=== PATIENT | female | born 1950 | race Caucasian/White ===

== ENCOUNTER 2022-07-01 14:35 | Outpatient (CLI) | payer OTHER, MEDICARE, SELFPAY ==
--- NOTE | 2022-07-01 14:40 | CRLHL7_ITS ---
For Patients: As a result of the Century Cures Act, medical imaging exams and procedure reports are released immediately into your electronic medical record. You may view this report before your referring provider. If you have questions, please contact your health care provider. BILATERAL SCREENING MAMMOGRAM WITH COMPUTER-AIDED DETECTION AND TOMOSYNTHESIS TECHNIQUE: CC and MLO views were obtained. These mammographic images have been obtained using full-field digital technique. These mammographic images were interpreted with the benefit of computer-aided detection. Breast Tomosynthesis was used in this interpretation. COMPARISON FILM: 06/30/21, 06/15/20, 06/12/19. FINDINGS: The breasts are heterogeneously dense, which may obscure small masses IMPRESSION: There is no radiographic evidence for malignancy. ASSESSMENT: BI-RADS Category 1: Negative RECOMMENDATION: Routine screening mammogram in 1 year. A lay language report of this examination will be provided to the patient. Kaiden Martinez M.D. Diagnostic Radiologist [email or web address] TOMAS/Dictated by: Kaiden Martinez MD @ 07/04/2022 11:50:00 AM (Electronically Signed)
== END 2022-07-01 14:36 | disposition home or self-care (01) ==
LOC: MAMMO 14:42
PROVIDERS: PCP Family Medicine; Visit Provider Family Medicine
DX: Z12.31 Encounter for screening mammogram for malignant neoplasm of breast (principal); R92.2 Inconclusive mammogram
CPT/HCPCS: 77063; 77067

== ENCOUNTER 2023-07-03 13:24 | Outpatient (CLI) | payer OTHER, SELFPAY ==
--- NOTE | 2023-07-03 13:40 | MM_ITS ---
Final Report Patient: CARLINE DONOHUE Facility:?[facility] Patient ID:?[id number] Study:?XRay Breast Left 3D W/CAD-07/03/2023 2:11:02 PM Ordering Physician:Heriberto Rebolledo Final Report: BILATERAL SCREENING MAMMOGRAM WITH COMPUTER-AIDED DETECTION AND TOMOSYNTHESIS TECHNIQUE: CC and MLO views were obtained. These mammographic images have been obtained using full-field digital technique. These mammographic images were interpreted with the benefit of computer-aided detection. Breast Tomosynthesis was used in this interpretation. COMPARISON FILM: 07/01/22, 06/30/21, 06/15/20. FINDINGS: There are scattered areas of fibroglandular density. IMPRESSION: There is no radiographic evidence for malignancy. ASSESSMENT: BI-RADS Category 1: Negative RECOMMENDATION: Routine screening mammogram in 1 year. A lay language report of this examination will be provided to the patient. Kaiden Martinez M.D. Diagnostic Radiologist [email or web address] DSM/sp R& Transcribed: 3:45 p.m. SP/Dictated by: Kaiden Martinez MD @ 07/05/2023 1:09:00 PM (Electronic Signature)
== END 2023-07-03 13:25 | disposition home or self-care (01) ==
PROVIDERS: PCP Family Medicine; Visit Provider Internal Medicine Hematology & Oncology
DX: Z12.31 Encounter for screening mammogram for malignant neoplasm of breast (principal)
CPT/HCPCS: 77063; 77067

== ENCOUNTER 2024-06-10 08:27 | Outpatient (CLI) | payer OTHER, SELFPAY | END 2024-06-10 08:28 | disposition home or self-care (01) | LOC: NFLDREF 06-17 00:39 | PROVIDERS: PCP Family Medicine; Referring Provider Family Medicine; Visit Provider Family Medicine | DX: E78.5 Hyperlipidemia, unspecified (principal); R53.83 Other fatigue; M81.0 Age-related osteoporosis without current pathological fracture; Z13.9 Encounter for screening, unspecified; Z13.6 Encounter for screening for cardiovascular disorders; Z13.220 Encounter for screening for lipoid disorders | CPT/HCPCS: 80053; 80061 ==

== ENCOUNTER 2024-07-05 13:35 | Outpatient (CLI) | payer OTHER, SELFPAY ==
--- NOTE | 2024-07-05 13:40 | CRLHL7_ITS ---
For Patients: As a result of the Century Cures Act, medical imaging exams and procedure reports are released immediately into your electronic medical record. You may view this report before your referring provider. If you have questions, please contact your health care provider. BILATERAL SCREENING MAMMOGRAM WITH COMPUTER-AIDED DETECTION AND TOMOSYNTHESIS TECHNIQUE: CC and MLO views were obtained. These mammographic images have been obtained using full-field digital technique. These mammographic images were interpreted with the benefit of computer-aided detection. Breast Tomosynthesis was used in this interpretation. COMPARISON FILM: 07/03/23, 07/01/22, 06/30/21. FINDINGS: There are scattered areas of fibroglandular density. IMPRESSION: There is no radiographic evidence for malignancy. ASSESSMENT: BI-RADS Category 2: Benign RECOMMENDATION: Routine screening mammogram in 1 year. A lay language report of this examination will be provided to the patient. Kaiden Martinez M.D. Diagnostic Radiologist [email or web address] SP/Dictated by: Kaiden Martinez MD @ 07/10/2024 11:25:00 AM (Electronically Signed)
== END 2024-07-05 13:36 | disposition home or self-care (01) ==
LOC: MAMMO 13:35
PROVIDERS: PCP Family Medicine; Visit Provider Family Medicine
DX: Z12.31 Encounter for screening mammogram for malignant neoplasm of breast (principal)
CPT/HCPCS: 77063; 77067